=== PATIENT | female | born 1975 | race Caucasian/White ===

== ENCOUNTER → 2023-07-04 15:44 | Outpatient (REF) | payer BC, SELFPAY | LOC: HWRAD 15:44 | PROVIDERS: ATTENDING PHYSICIAN Physician Assistant | DX: Z13.820 Encounter for screening for osteoporosis (principal) | CPT/HCPCS: 77080 ==

== ENCOUNTER → 2023-12-27 13:43 | Outpatient (REF) | payer BC, SELFPAY | LOC: RCS 13:43 | PROVIDERS: ATTENDING PHYSICIAN Internal Medicine Cardiovascular Disease; FAMILY PHYSICIAN Physician Assistant | DX: I05.9 Rheumatic mitral valve disease, unspecified (principal); R00.2 Palpitations | CPT/HCPCS: 93306 ==

== ENCOUNTER 2024-03-11 06:22 | Day surgery (SDC) | payer BC, SELFPAY | END 2024-03-11 13:16 | disposition home or self-care (01) | LOC: GI 06:22 | PROVIDERS: ATTENDING PHYSICIAN Internal Medicine | DX: K64.9 Unspecified hemorrhoids (principal); R19.4 Change in bowel habit; K29.70 Gastritis, unspecified, without bleeding; K90.0 Celiac disease; Z87.19 Personal history of other diseases of the digestive system | CPT/HCPCS: 45380; 43239; 88305; 88342 ==